=== PATIENT | female | born 1960 | race Hispanic/Latino ===

== ENCOUNTER 2021-01-24 08:11 | Day surgery (SDC) | payer BC, OTHER ==
[2021-01-20 13:23] LABS: Hematocrit 41.6 % (30.3-42.9); Hemoglobin 14.1 gm/dl (10.1-14.3); Mean Corpuscular HGB Conc 34 % (30-34); Mean Corpuscular Volume 91 fl (79-97); Platelet Count 275 K/mm3 (140-440); Red Blood Count 4.56 M/mm3 (3.65-5.03); Red Cell Distribution Width 14.1 % (13.2-15.2)
--- NOTE | 2021-01-20 13:32 | Anesthesia Consultation ---
Anesthesia Consult and Med Hx Date of service: 01/24/21 - Airway Anesthetic Teeth Evaluation: Good ROM Head & Neck: Adequate Mental/Hyoid Distance: Inadequate Mallampati Class: Class I Intubation Access Assessment: Possibly Difficult - Pulmonary Exam CTA: Yes - Cardiac Exam Cardiac Exam: RRR - Pre-Operative Health Status ASA Pre-Surgery Classification: ASA3 Proposed Anesthetic Plan: General - Pulmonary Hx Smoking: Yes (1 PPD) Hx Respiratory Symptoms: No Hx Sleep Apnea: Yes (+ CPAP) - Cardiovascular System Hx Hypertension: Yes Hx Heart Attack/AMI: No (normal cardiac perfusion study 06/2020) Hx Percutaneous Transluminal Coronary Angioplasty (PTCA): No Hx Cardia Arrhythmia: Yes (LBBB) Hx Pacemaker: No Hx Internal Defibrillator: No - Central Nervous System CVA: No - Gastrointestinal Hx Gastroesophageal Reflux Disease: Yes (controlled with omeprazole) - Endocrine Hx Renal Disease: No Hx Liver Disease: No Hx Non-Insulin Dependent Diabetes: No Hx Thyroid Disease: No - Other Systems Hx Obesity: Yes (BMI 47) - Additional Comments Anesthesia Medical History Comments: No hx anesthetic complications. Preop cardiology eval on chart. Smoking cessation encouraged and patient instructed not to smoke morning of surgery.
[2021-01-20 13:52] LABS: BUN/Creatinine Ratio 20; Blood Urea Nitrogen 10 mg/dL (7-17); Calcium 9.5 mg/dL (8.4-10.2); Hemolysis Index 5
--- NOTE | 2021-01-23 18:01 | Short Stay Summary ---
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 Moon (left) Abnormal PAP: positive Infection History HIV Risk Eval: no Hx of STD: + h/o genital warts Active Medications (reviewed today): amlodipine 5 mg tablet (amlodipine) atorvastatin 20 mg tablet (atorvastatin) metformin 500 mg tablet (metformin) omeprazole 40 mg capsule,delayed release(DR/EC) (omeprazole) alprazolam 0.5 mg tablet (alprazolam) lisinopril-hydrochlorothiazide 20-25 mg tablet (lisinopril-hydrochlorothiazide) propranolol 120 mg capsule,extended release 24 hr (propranolol) Current Allergies (reviewed today): No known allergies Past Medical History: Reviewed history from 04/15/2019 and no changes required: Obesity Colitis/ colon polyps Hypertension G E R D Hyperlipidemia Diabetes BRCA negative Past Surgical History: Reviewed history from 04/15/2019 and no changes required: Breast Lumpectomy: (2008) benign Dr. Moon (left) Social History: Reviewed history from 04/15/2019 and no changes required: Patient is Smoking History: Patient currently smokes every day. Patient has been counseled to quit. Risk Factors: Smoked Tobacco Use: Current every day smoker Cigarettes: Yes -- 1/2 pack pack(s) per day,Smokeless Tobacco Use: Never Counseled to Quit/Cut Down: yes Passive Smoke Exposure: no HIV High Risk Behavior: no Exercise: no Seatbelt Use: 100 % Alcohol Use: yes Drinks per day: social Drug Use: no Previous Tobacco Use: Signed On - 11/16/2020 Smoked Tobacco Use: Current every day smoker Cigarettes: Yes -- 3/4 pack pack(s) per day,Smokeless Tobacco Use: Never Counseled to Quit/Cut Down: yes Passive Smoke Exposure: no HIV High Risk Behavior: no Caffeine Use: 2 drinks per day Exercise: no Seatbelt Use: 100 % Sun Exposure: rarely Alcohol Use: yes Type: occ Drinks per day: social Drug Use: no Review of Systems General Denies fever, chills, sweats, anorexia, fatigue, weakness, malaise, weight loss and sleep disorder. Complains of abnormal vaginal bleeding. Denies vaginal discharge, incontinence, dysuria, hematuria, urinary frequency, amenorrhea, menorrhagia, pelvic pain, genital sores, decreased libido, painful periods, painful sex, urinary urgency, hot flashes, vaginal dryness, vaginal itching and vaginal odor. CV Denies chest pains, palpitations, syncope, dyspnea on exertion, orthopnea, PND and peripheral edema. Resp Denies cough, dyspnea at rest, excessive sputum, hemoptysis, wheezing and pleurisy. GI Denies nausea, vomiting, diarrhea, constipation, change in bowel habits, abdominal pain, melena, hematochezia, jaundice, gas/bloating, indigestion/heartburn, dysphagia and odynophagia. Endo Denies cold intolerance, heat intolerance, polydipsia, polyphagia, polyuria and unusual weight change. Breast Denies left breast lump, right breast lump, nipple discharge, bloody discharge from nipple, breast pain, abnormal mammogram and breast enlargement. MS Denies back pain, joint pain, joint swelling, muscle cramps, muscle weakness, stiffness, arthritis, sciatica, restless legs, leg pain at night and leg pain with exertion. Derm Denies rash, itching, dryness and suspicious lesions. Neuro Denies paralysis, paresthesias, headache, seizures, tremors, vertigo, gilmore sient blindness, frequent falls, frequent headaches and difficulty walking. Psych Denies depression, anxiety, irritability and mood swings. Eyes Denies blurring, diplopia, irritation, discharge, vision loss, eye pain and photophobia. ENT Denies earache, ear discharge, tinnitus, decreased hearing, nasal congestion, nosebleeds, sore throat and hoarseness. Allergy Denies urticaria, allergic rash, hay fever and recurrent infections. Heme Denies abnormal bruising, bleeding and enlarged lymph nodes. Physical Exam Appearance: well developed, well nourished, no acute distress Other Exams Heart: S1, S2, no murmur, rub, or gallop Abdomen: soft, non-tender, no masses, bowel sounds normal Genitourinary Exam Uterus: deferred for EUA Impression & Recommendations: Problem # 1: Postmenopausal Bleeding (ICD-627.1) ([id number]) This is a postmenopausal obese patient whose EMB revealed superficial endometrium however the endometrial strip was thick on US. Limiitationof EMB blanquita under these circumstances explained, optons reviewed, questions were encouraged and answered, she voiced understanding and desires to proceed with hysteroscopy D&C and any other indicated procedures. Consent reviewed and signed . Possible laparoscopy or laparotomy explained to patient. The risks and alternatives for this surgery were reviewed with the patient. She was informed of possible uterine perforation, bleeding, infection, injury to bowel, bladder, ureters or other adjacent organs. The patient was instructed/informed the following: The normal length of hospital stay for this procedure. Nothing to eat or drink after midnight the evening prior to surgery. Pre-op instruction given. Infection precautions reviewed, patient to call for any signs or symptoms of infection. The usual discomforts associated with this procedure were discussed in detailed. Proper use of pain medicines was reviewed. Patient was given ample opportunity to have all her questions answered before signing informed consent. H&P dictated. Problem # 2: Endometrium thickened (ICD-793.5) (UDO04-N42.89) Problem # 3: Body Mass Index 45.0-49.9, adult (ICD-V85.42) (NHO16-Q48.42) Problem # 4: Smoker (ICD-305.1) (HRJ49-K13.210) Problem # 5: Fibroids of uterus; Intramural (ICD-218.1) (WST34-H70.1) Medications Added to Medication List This Visit: 1) Amlodipine 5 Mg Tablet (Amlodipine) 2) Atorvastatin 20 Mg Tablet (Atorvastatin) 3) Metformin 500 Mg Tablet (Metformin) 4) Omeprazole 40 Mg Capsule,delayed Release(dr/ec) (Omeprazole) 5) Alprazolam 0.5 Mg Tablet (Alprazolam) 6) Lisinopril-hydrochlorothiazide 20-25 Mg Tablet (Lisinopril- hydrochlorothiazide) 7) Propranolol 120 Mg Capsule,extended Release 24 Hr (Propranolol) ] Patient has been reassessed/reevaluated/re-examined. H&P has been reviewed. No interval changes. - Allergies and Medications Current Medications: Allergies No Known Allergies Allergy (Unverified 01/18/21 16:10) Home Medications Medication Instructions Recorded Confirmed Last Taken Type AtorvaSTATin [Lipitor] 20 mg PO QHS 01/20/21 01/20/21 Unknown History Lisinopril/Hydrochlorothiazide 1 tab PO QDAY 01/20/21 01/20/21 Unknown History [Zestoretic 20-12.5 mg] Omeprazole 40 mg PO DAILY 01/20/21 01/20/21 Unknown History Propranolol HCl [Inderal Xl] 120 mg PO DAILY 01/20/21 01/20/21 Unknown History amLODIPine [Norvasc] 5 mg PO DAILY 01/20/21 01/20/21 Unknown History metFORMIN [Glucophage] 500 mg PO BID 01/20/21 01/20/21 Unknown History Active Medications Lactated Ringer's (Lactated Ringers) 1,000 mls @ 100 mls/hr IV DIRECT KATHYA Stop: 01/24/21 23:59 - Brief post op/procedure progress note Date of procedure: 01/24/21 Pre-op diagnosis: Postmenopausal bleeding with an adequate endometrial biopsy in office Post-op diagnosis: same Procedure: * Exam under anesthesia * Cervical dilation * Diagnostic hysteroscopy * Uterine curettage Anesthesia: MAC Findings: * Submucosal fibroid With Only Approximately 25% with in the endometrial cavity. * Endometrial polyp. Surgeon: XOCHILT CAT Estimated blood loss: minimal Pathology: list (Endometrial tissue and endometrial polyp.) Specimen disposition: to lab Condition: stable - Hospital course Hospital course: Normal - Disposition Condition at discharge: Good Disposition: 01 HOME / SELF CARE / HOMELESS - Discharge Diagnoses (1) Postmenopausal bleeding Status: Acute (2) Body mass index 45.0-49.9, adult Status: Acute (3) Smoker Status: Acute (4) Thickened endometrium Status: Acute (5) Fibroids, intramural Status: Acute (6) Endometrial polyp Status: Acute Short Stay Discharge Plan Activity: other (No sex x1 week. Ambulate approximately 1 mile on her property daily. Void frequently. May drive in 24 to 48 hours.) Weight Bearing Status: Full Weight Bearing Diet: low fat, low cholesterol, low salt, diabetic Special Instructions: no heavy lifting (Greater than 25 pounds) Follow up with: LEAH MCGOWAN MD [Primary Care Provider] - 7 Days XOCHILT CAT MD [Staff Physician] - (As scheduled) Prescriptions: Ibuprofen [Motrin 800 MG tab] 800 mg PO Q8HR PRN #30 tablet PRN Reason: Pain, Moderate (4-6) oxyCODONE /ACETAMINOPHEN [Percocet 5/325 mg] 1 - 2 tab PO Q6HR PRN #7 tablet PRN Reason: Pain
[~2021-01-24 08:11] MED LIST: LACTATED RINGERS 1,000 ML IV SCH
[2021-01-24] MEDS ORDERED: HYDROmorphone 1 MG/1 ML INJ IV PRN ×2 (09:21)
[2021-01-24] MEDS ORDERED: ONDANSETRON 4 MG/2 ML INJ IV PRN (09:21)
--- NOTE | 2021-01-24 09:21 | Anesthesia Day of Surgery ---
Anesthesia Day of Surgery - Day of Surgery Patient Examined: Yes Patient H&P Reviewed: Yes Patient is NPO: Yes
[2021-01-24] MEDS ORDERED: LIDOCAINE MPF (2%) 20 MG/1 ML VIAL 5 ML ONE (09:23)
[2021-01-24] MEDS ORDERED: propofoL 200 MG/20 ML VIAL IV ONE (09:23)
[2021-01-24] MEDS ORDERED: KETOROLAC 30 MG/1 ML INJ ONE (09:24)
[2021-01-24] MEDS ORDERED: dexAMETHasone 20 MG/5 ML VIAL ONE (09:24)
[2021-01-24] MEDS: MIDAZOLAM 2 MG/2 ML INJ IV NR ×2 (09:50→10:25)
[2021-01-24] MEDS ORDERED: PHENYLEPHRINE/NS 1,000 MCG/10 ML SYRINGE (OR USE) IV ONE (10:59)
[2021-01-24] MEDS ORDERED: SODIUM CHLORIDE 0.9% IRRIG SOLN 2000 ML IR ONE (11:15)
--- NOTE | 2021-01-24 11:51 | Operative Report ---
Operative Report Operative Report: Date: 01/24/2021 PREOPERATIVE DIAGNOSES: 1. Postmenopausal bleed 2. Thickened endometrium 3. Uterine fibroid POSTOPERATIVE DIAGNOSES: 1. Postmenopausal bleed 2. Thickened endometrium 3. Uterine fibroid PROCEDURE PERFORMED: 1. Hysteroscopy. 2. Dilation and curettage (D&C) ANESTHESIA: General ESTIMATED BLOOD LOSS: Less than minimal cc. INDICATIONS: This is a 60-year-old female that presents postmenopausal bleeding. PROCEDURE: The patient was seen in the preoperative suite. Expected procedure and postoperative course discussed with her. She was taken to the operative suite where general was performed. She was placed in a dorsal lithotomy position. . A bimanual exam was done, the uterus was found to be unable to palpate due to body habitus. She was prepped and draped in the normal sterile fashion. Timeout was performed. Her bladder was drained with the red Griffiths catheter which produced approximately 10 cc of clear yellow urine. The cervix and vagina were grossly normal with no obvious masses or deformities. A bivalve operative speculum was placed in the vagina and the anterior lip of the cervix was grasped with the single-tooth tenaculum. The uterus was sounded to ~8 cm. The cervix was progressively dilated to allow the diagnostic hysteroscope. Under direct visualization, the ostia were within normal limits. The endometrial lining appeared thickened with an polyp noted on the right lateral sidewall. Also there was a partially submucosal fibroid noted on the anterior. The hysteroscope was removed and a small sharp curette was placed intrauterine very carefully using anterior wall for guidance. Endometrial curettings were obtained. The endometrial sampling was placed on Telfa pad and sent to Pathology for evaluation, permanent. The hysteroscope was introduced again, no evidence of perforation was noted. The polyp was removed with the curettings. At this point procedure was ended. The single-tooth tenaculum and speculum were removed. The cervix was found to be hemostatic. Counts were correct. Patient was taken to the PACU stable. Distention fluid: Normal saline Deficit: 200 mL
[2021-01-24] MEDS ORDERED: ePHEDrine SULFATE 50 MG/1 ML INJ ONE (12:49)
[2021-01-24] MEDS ORDERED: ePHEDrine SULFATE 50 MG/1 ML INJ IV ONE (12:52)
[2021-01-24 14:43] VITALS: BP 108/60
--- NOTE | 2021-01-24 15:33 | Post Anesthesia Evaluation ---
- Post Anesthesia Evaluation Patient Participated: Yes Airway Patent: Yes Stable Respiratory Function: Yes Nausea/Vomiting: No Temp > 96.8F: Yes Pain Manageable: Yes Adequeate Hydration: Yes Anesthesia Complications: No Block Receding Appropriately: Not Applicable Patient on Ventilator: No
== END 2021-01-24 13:54 | disposition home or self-care (01) ==
LOC: OR 08:11
PROVIDERS: ATTEND Obstetrics & Gynecology
DX: N95.0 Postmenopausal bleeding (principal); D25.1 Intramural leiomyoma of uterus; R93.89 Abnormal findings on diagnostic imaging of other specified body structures; I10 Essential (primary) hypertension; E66.9 Obesity, unspecified; K21.9 Gastro-esophageal reflux disease without esophagitis; G47.30 Sleep apnea, unspecified; F17.200 Nicotine dependence, unspecified, uncomplicated; Z79.899 Other long term (current) drug therapy; Z98.890 Other specified postprocedural states; Z20.822 Contact with and (suspected) exposure to COVID-19
CPT/HCPCS: 36415; 58558; 80048; 82962; 85027; 88305; A4217; J0690; J1100; J1170; J1885; J2250; J2370; J2405; J2704; J7120; U0003